=== PATIENT | female | born 1945 | race Hispanic/Latino ===

== ENCOUNTER → 2019-05-09 | Day surgery (SDC) | payer MEDICARE ==
[2019-05-06 13:59] LABS: BASOPHILS % 0.5 % (0.0-1.0); EOSINOPHILS # (AUTO) 0.3 (0.0-0.4); HEMATOCRIT 27.9 % (34.2-44.1); HEMOGLOBIN 8.8 g/dL (12.0-16.0); LYMPHOCYTES # (AUTO) 0.7 (1.0-3.2); LYMPHOCYTES % 10.7 % (18.0-39.1); MEAN CORPUSCULAR HEMOGLOBIN 29.7 pg (28-32); MEAN CORPUSCULAR HGB CONC 31.5 g/dL (31-35); MEAN CORPUSCULAR VOLUME 94.3 fL (81-99); MONOCYTES # (AUTO) 0.4 (0.2-0.8); MONOCYTES % 5.9 % (4.4-11.3); NEUTROPHILS # (AUTO) 4.9 (2.1-6.9); NEUTROPHILS % 77.6 % (38.7-80.0); PLATELET COUNT 212 x10e3/uL (140-360); RED BLOOD COUNT 2.96 x10e6/uL (3.6-5.1); RED CELL DISTRIBUTION WIDTH 15.7 % (11.7-14.4)
[~2019-05-09] MED LIST: ASPIRIN81 MG PO; ATORVASTATIN CA20 MG PO; CARVEDILOL25 MG PO; FENTANYL CITRATE/PF 100MCG/2 ML INJ ONE; GLUCAGON FOR INJ 1 MG VIAL ONE; HYOSCYAMINE 0.125 MG TAB ONE; MIDAZOLAM HCL 2 MG/2 ML VIAL ONE; PROPOFOL IV EMULSION 10 MG/ML 50 ML VIAL ONE
--- OUTSIDE RECORDS SUMMARY | 2019-05-09 06:04 | XMS REPORT | Summary of Care ---
Author Author [facility] Address Unknown Phone Unavailable Encounter VAISHNAVI Griffith(TJ) [id number] Date(s): 08/20/18 - 08/20/18 [facility] [facility] [address], [address] [place] [phone] Attending Physician: Armin Espino MD Referring Physician: Armin Espino MD Vital Signs No data available for this section Problem List Condition Effective Dates Status Health Status Informant Benign essential 11/15/12 Active hypertension1 Coronary 11/15/12 Active arteriosclerosis2 Diabetes Active mellitus(Confirmed) Diverticulitis(Confi Resolved rmed) Hyperlipidemia3 11/15/12 Active Hypertension(Confirm Active ed) Non-toxic 11/15/12 Active multinodular goiter4 Osteopenia5 11/15/12 Active Syncope(Confirmed) Resolved Type II diabetes Active mellitus uncontrolled6 1Data migrated from [employer] on 01/10/15. 2Data migrated from [employer] on 01/10/15. 3Data migrated from [employer] on 01/10/15. 4Data migrated from [employer] on 01/10/15. 5Data migrated from [employer] on 01/10/15. 6Data migrated from [employer] on 01/10/15. Allergies, Adverse Reactions, Alerts No Known Medication Allergies Medications No data available for this section Results No data available for this section Immunizations No data available for this section Procedures Procedure Date Related Diagnosis Body Site Status CABG x 3 - Coronary artery bypass grafts x 3 Completed Cataract extraction Completed Color doppler ultrasound Completed Social History Social History Type Response Substance Abuse Use: None. IV drug use: No. Employment/School Status: Retired. Alcohol Current, Type Beer. Frequency: 1-2 times per year. Alcohol use interferes with work or home: No. Smoking Status Never smoker; Exposure to Tobacco Smoke None; Cigarette Smoking Last 365 Days No; Reg Smoking Cessation Counseling No entered on: 01/09/19 Assessment and Plan No data available for this section
--- OUTSIDE RECORDS SUMMARY | 2019-05-09 06:04 | XMS REPORT | Summary of Care ---
Author Author [facility] [place] Organization [facility] [place] Address Unknown Phone Unavailable Encounter HQ Nacho(FIN) [id number] Date(s): 08/16/18 - 08/16/18 [facility] [place] [address] [place] [phone] Encounter Diagnosis Transient cerebral ischemic attack, unspecified (Final) - 08/20/18 Unspecified atherosclerosis (Final) - Discharge Disposition: Home or Self Care Attending Physician: Armin Espino MD Referring Physician: [...]
--- OUTSIDE RECORDS SUMMARY | 2019-05-09 06:04 | XMS REPORT | Summary of Care ---
Author Author [facility] Organization [facility] Address Unknown Phone Unavailable Encounter VAISHNAVI Griffith(TJ) [id number] Date(s): 01/01/19 - 01/30/19 [facility] [address] [place] [address] [phone] Discharge Disposition: Home or Self Care Attending Physician: Jan Ulloa MD Referring Physician: Jan Ulloa MD Vital Signs Most recent to 1 2 oldest [Reference Range]: Height 160.02 cm (01/01/19 8:12 AM) Temperature Oral 98.2 DegF 98.2 DegF [96.4-99.1 DegF] (01/09/19 11:35 AM) (01/01/19 11:24 AM) Blood Pressure 154/82 mmHg 153/80 mmHg [90-140/60-90 mmHg] *HI* *HI* (01/09/19 11:35 AM) (01/01/19 11:24 AM) Respiratory Rate 17 BRMIN [14-20 BRMIN] (01/01/19 11:24 AM) Peripheral Pulse 57 bpm Rate [60-100 bpm] *LOW* (01/01/19 11:24 AM) Weight 63.636 kg (01/01/19 8:12 AM) Body Mass Index 24.85 m2 (01/01/19 8:12 AM) Problem List Condition Effective Dates Status Health Status Informant Benign essential 11/15/12 Active hypertension1 Coronary 11/15/12 Active arteriosclerosis2 Diabetes Active mellitus(Confirmed) Diverticulitis(Confi Resolved rmed) Hyperlipidemia3 11/15/12 Active Hypertension(Confirm Active ed) Non-toxic 11/15/12 Active multinodular goiter4 Osteopenia5 11/15/12 Active Syncope(Confirmed) Resolved Type II diabetes Active mellitus uncontrolled6 1Data migrated from [facility] on 01/10/15. 2Data migrated from [employer] on 01/10/15. 3Data migrated from [employer] on 01/10/15. 4Data migrated from [employer] on 01/10/15. 5Data migrated from [employer] on 01/10/15. 6Data migrated from [employer] on 01/10/15. Allergies, Adverse Reactions, Alerts No Known Medication Allergies Medications aspirin 81 mg tablet, chewable 81 mg=1 tab, CHEW, Daily, 0 Refill(s) Start Date: 01/01/19 Status: Ordered atorvastatin PO, Daily, 0 Refill(s) Start Date: 01/01/19 Status: Ordered Coreg 12.5 mg, PO, BID, 0 Refill(s) Start Date: 01/01/19 Status: Ordered Feraheme + Sodium Chloride 0.9% IV 100 mL 510 mg, 17 mL, 468 ml/hr, Infuse Over: 15 minutes, Route: IVPB, 117, ONCALL, Sta rt date: 01/09/19 11:00:00 CDT, Duration: 8 hr, Stop date: 01/09/19 18:59:00 CDT Notes: Same as: FerahemeNon-FormularyDO NOT administer undiluted IVP. This agen t is reserved for use by Nephrologists in patients who are unable to tolerate or al therapy. MEDICATION WASTE Product Size: 510 mgProduct Wasted: ___ mg Start Date: 01/09/19 Stop Date: 01/09/19 Status: Completed Feraheme + Sodium Chloride 0.9% IV 100 mL 510 mg, 17 mL, 468 ml/hr, Infuse Over: 15 minutes, Route: IVPB, 117, ONCALL, Sta rt date: 01/01/19 11:00:00 CDT, Duration: 8 hr, Stop date: 01/01/19 18:59:00 CDT Notes: Same as: FerahemeNon-FormularyDO NOT administer undiluted IVP. This agen t is reserved for use by Nephrologists in patients who are unable to tolerate or al therapy. MEDICATION WASTE Product Size: 510 mgProduct Wasted: ___ mg Start Date: 01/01/19 Stop Date: 01/01/19 Status: Completed Results No data available for this section [...]
--- OUTSIDE RECORDS SUMMARY | 2019-05-09 06:04 | XMS REPORT | Continuity of Care Document ---
Author Author [facility] Organization [facility] Information [place] Address Unknown Phone Unavailable Care Team Providers Care Production Illustrator Name Role Phone [facility] Information [facility] Unavailable Unavailable Problems Problem Status Onset Date Classification Date Reported Comments Source HARIS 510MG Q0138 // CPT: 54127 // DX Active 12/19/2018 DULCE MARIA Gomez Transient cerebral ischemic attack, unspecified 08/21/2018 03/06/2019 RUI Briones G45.9 - TRANSIENT CEREBRAL ISCHEMIC AT Active 08/15/2018 [facility] Anselmo G45 - TRANSIENT CEREBRAL ISCHEMIC AT Active 08/15/2018 RUI Briones 733.90 - BONE CARTILAG Active 11/23/2012 RUI Frankel Benign essential hypertension (disorder) Active 11/15/2012 Problem 03/09/2019 Data migrated from [employer] on 01/10/15. DULCE MARIA Kimbrough [facility], [facility] [place] Coronary arteriosclerosis (disorder) Active 11/15/2012 Problem 03/09/2019 Data migrated from [employer] on 01/10/15. DULCE MARIA Kimbrough [facility], [facility] [place] Hyperlipidemia (disorder) Active 11/15/2012 Problem 03/09/2019 Data migrated from [employer] on 01/10/15. DULCE MARIA Kimbrough [facility], [facility] [place] Non-toxic multinodular goiter (disorder) Active 11/15/2012 Problem 03/09/2019 Data migrated from [employer] on 01/10/15. DULCE MARIA Kimbrough, [facility] [place] Osteopenia (disorder) Active 11/15/2012 Problem 03/09/2019 Data migrated from [employer] on 01/10/15. DULCE MARIA Kimbrough [facility], [facility] [place] Diabetes mellitus (disorder) Active Problem 03/09/2019 DULCE MARIA Kimbrough, [facility] [place] Diverticulitis (disorder) Resolved Problem 03/09/2019 DULCE MARIA Kimbrough [facility], [place] Hypertensive disorder, systemic arterial (disorder) Active [facility] [place] Syncope (disorder) Resolved Problem 03/09/2019 [facility] [place] Type II diabetes mellitus uncontrolled (finding) Active Problem 03/09/2019 Data migrated from [facility] on 01/10/15. RUI Briones,[facility], [facility] [place] Unspecified atherosclerosis 03/06/2019 [place] Briones Medications Medication Details Route Status Patient Instructions Ordering Provider Order Date Source Feraheme + Sodium Chloride 0.9% IV 100 mL 510 mg, 17 mL, 468 ml/hr, Infuse Over: 15 minutes, Route: IVPB, 117, ONCALL, Start date: 01/09/19 11:00:00 CDT, Duration: 8 hr, Stop date: 01/09/19 18:59:00 CDTNotes: Same as: Feraheme Non-Formulary DO NOT administer undiluted IVP. This agent is reserved for use by Nephrologists in patients who are unable to tolerate oral therapy. MEDICATION WASTE Product Size: 510 mg Product Wasted: ___ mg Inactive 01/09/2019 [facility] Coreg 12.5 mg, PO, BID, 0 Refill(s) Active 01/01/2019 [facility] atorvastatin PO, Daily, 0 Refill(s) Active 01/01/2019 [facility] Aspirin 81 MG Chewable Tablet 81 mg=1 tab, CHEW, Daily, 0 Refill(s) Active 01/01/2019 [facility] Feraheme + Sodium Chloride 0.9% IV 100 mL 510 mg, 17 mL, 468 ml/hr, Infuse Over: 15 minutes, Route: IVPB, 117, ONCALL, Start date: 01/01/19 11:00:00 CDT, Duration: 8 hr, Stop date: 01/01/19 18:59:00 CDTNotes: Same as: Feraheme Non-Formulary DO NOT administer undiluted IVP. This agent is reserved for use by Nephrologists in patients who are unable to tolerate oral therapy. MEDICATION WASTE Product Size: 510 mg Product Wasted: ___ mg Inactive 01/01/2019 [facility] Allergies, Adverse Reactions, Alerts Substance Category Reaction Severity Reaction type Status Date Reported Comments Source No Known Medication Allergies Assertion Drug allergy [facility] [place] Immunizations No Data Provided for This Section Results No Data Provided for This Section Pathology Reports No Data Provided for This Section Diagnostic Reports Report Value Date Source Carotid artery Doppler bilat US EXAM: Carotid Ultrasound with Doppler INDICATION: Transient ischemic attack. COMPARISON: None TECHNIQUE: Farias scale, color Doppler and spectral waveform analysis of the bilateral extracranial carotid and vertebral arteries were performed. FINDINGS: Plaque Right: Mild to moderate plaque within the common carotid artery, carotid bulb and internal carotid artery. Left: Mild to moderate plaque within the common carotid artery, carotid bulb and internal carotid artery. Intimal thickening Right: None Left: None Internal Carotid Artery Peak Systolic Velocity Right: 116 cm/sec Left: 96.7 cm/sec Common Carotid Peak Systolic Velocity Right: 71.5 cm/sec Left: 88 cm/sec Internal Carotid Artery to Common Carotid Ratio Right: 1.62 Left: 1.1 Vertebral Arteries Direction: Normal antegrade flow Waveforms: Normal Others: Incompletely evaluated thyroid gland. IMPRESSION: 1. Carotid artery plaques as described above 2. Findings consistent with less than 50% internal carotid artery stenosis bilaterally. 3. Antegrade vertebral arterial flow bilaterally. <50% stenosis: PSV <125 cm/sec, EDV <40cm/sec, ICA:CCA ratio <2 50-69% stenosis: PSV 125-230cm/sec, EDV 40-100cm/sec, ICA:CCA ratio 2-4 >70% stenosis: PSV >230cm/sec, EDV >100cm/sec, ICA:CCA ratio >4 Reference: Radiology. [phone]:[id number]. Carotid Artery Stenosis: Farias-scale and Doppler US diagnosis- Society of Radiologists in Ultrasound Consensus Conference. Alo EG, Marques CB, Ann According to the 2003 Consensus criteria: RIU, et. al. 08/16/2018 RUI Briones Consultation Notes No Data Provided for This Section Discharge Summaries No Data Provided for This Section History and Physicals No Data Provided for This Section Vital Signs Vital Sign Value Date Comments Source Temperature Oral (F) 98.2 F 01/09/2019 [facility] Systolic (mm Hg) 154 01/09/2019 [facility] Diastolic (mm Hg) 82 01/09/2019 [facility] Temperature Oral (F) 98.2 F 01/01/2019 [facility] Heart Rate 57 01/01/2019 [facility] Respitory Rate 17 01/01/2019 [facility] Systolic (mm Hg) 153 01/01/2019 [facility] Diastolic (mm Hg) 80 01/01/2019 [facility] Weight 63.636 01/01/2019 [facility] BMI Calculated 24.85 01/01/2019 [facility] Height 160.02 cm 01/01/2019 [facility] Encounters Location Location Details Encounter Type Encounter Number Reason For Visit Attending Provider ADM Date DC Date Status Source OD [id number] 733.90 - BONE CARTILAG TYRONEJohn EDWARDS 11/26/2012 Active RUI Frankel [facility] [place] [facility] [id number] Armin Espino 08/16/2018 08/17/2018 RUI Briones [facility] [place] [facility] [id number] Armin Srinivas 08/20/2018 08/20/2018 [facility] Recurring [id number] Jan Ulloa 01/01/2019 01/31/2019 [facility] Procedures Procedure Code Date Perfomer Comments Source CABG x 3 - Coronary artery bypass grafts x 3 [id number] RUI Briones,[facility] Cataract extraction [id number] [facility] Color doppler ultrasound [id number] [facility] Assessment and Plan No Data Provided for This Section Plan of Care No Data Provided for This Section Social History Social History Date Source Social History TypeResponse Substance Abuse Use: None. IV drug use: No. Employment/School Status: Retired. Alcohol Current, Type Beer. Frequency: 1-2 times per year. Alcohol use interferes with work or home: No. Smoking Status Never smoker; Exposure to Tobacco Smoke None; Cigarette Smoking Last 365 Days No; Reg Smoking Cessation Counseling No entered on: 01/09/19 01/01/2019 [facility] Social History TypeResponse Substance Abuse Use: None. IV drug use: No. Employment/School Status: Retired. Alcohol Current, Type Beer. Frequency: 1-2 times per year. Alcohol use interferes with work or home: No. Smoking Status Never smoker; Exposure to Tobacco Smoke None; Cigarette Smoking Last 365 Days No; Reg Smoking Cessation Counseling No entered on: 01/09/19 01/01/2019 RUI Briones Social History TypeResponse Substance Abuse Use: None. IV drug use: No. Employment/School Status: Retired. Alcohol Current, Type Beer. Frequency: 1-2 times per year. Alcohol use interferes with work or home: No. Smoking Status Never smoker; Exposure to Tobacco Smoke None; Cigarette Smoking Last 365 Days No; Reg Smoking Cessation Counseling No entered on: 01/09/19 01/01/2019 [facility] No Data Provided for This Section Advance Directives No Data Provided for This Section Functional Status No Data Provided for This Section
--- OUTSIDE RECORDS SUMMARY | 2019-05-09 06:04 | XMS REPORT ---
Author Author [facility] Address Unknown Phone Unavailable Care Team Providers Care Kraft Digester Operator Name Role Phone Unavailable Unavailable Payers Payer Name Policy Type Policy Number Effective Date Expiration Date Problems This patient has no known problems. Allergies, Adverse Reactions, Alerts Allergy Name Allergy Type Status Severity Reaction(s) Onset Date Inactive Date Treating Clinician Comments No Known Allergies DA Active U 2018-05-15 00:00:00 Medications This patient has no known medications. Encounters Start Date/Time End Date/Time Encounter Type Admission Type Attending Clinicians [facility] Care Department Encounter ID 2019-01-01 10:54:00 2019-01-01 10:54:00 Outpatient [id number]
--- NOTE | 2019-05-09 07:10 | NUR ---
SPIRITUAL CARE - Pre-Surgery Assessment: Pt in bed. Pt's daughter at bedside. Pt reported supportive attention from family and friends. Intervention: I provided pastoral presence, hospitality, and sympathetic listening. I acquainted pt with availability of fruit culler while hospitalized. Outcome: Pt expressed appreciation for visit. No need for follow up indicated at this time. QAMAR Houlain Spiritual Care Department O: [phone] Pager: [phone] ([phone] number calling from)
[2019-05-09 10:40] VITALS: BP 138/66
[2019-05-09 12:23] LABS: FOLATE 14.1 ng/mL (7.0-15.4)
[2019-05-09 13:15] LABS: % IRON SATURATION 15 % (15-50); IRON 42 ug/dL (50-170); TOTAL IRON BINDING CAPACITY 283 ug/dL (261-478); TRANSFERRIN 202 mg/dL (180-382)
--- NOTE | 2019-05-09 17:50 | Operative Report ---
DATE OF PROCEDURE: 05/09/2019 SURGEON: Celso Azul MD PROCEDURES: EGD with biopsies and colonoscopy with polypectomy. INDICATION FOR EGD: Anemia. INDICATION FOR COLONOSCOPY: Anemia. MEDICATIONS: The patient was done under MAC, please see anesthesiologist's note. PROCEDURE IN DETAIL: With the patient in left lateral decubitus position, a flexible fiberoptic Olympus gastroscope was introduced into the esophagus under direct visualization without any difficulty. There was some patchy erythema noted in distal esophagus. Minute tongues of velvety red mucosa were noted to extend proximally from the GE junction and biopsies were obtained to rule out Lauren. The scope was then advanced with ease into the stomach, mucosa overlying the antrum and the body revealed some patchy intense erythema and low-grade to moderate edema, and biopsies were obtained and sent to stain for H. pylori. Pylorus was of normal contour and shape, it was intubated with ease and the scope was advanced all the way to the second portion of the duodenum. The scope was then withdrawn slowly, mucosa overlying the proximal second portion and duodenal bulb grossly appeared to be within normal limits. Biopsies were obtained to rule out sprue. The scope was then withdrawn back into the stomach and retroflexed, mucosa overlying the fundus and the cardia appeared to be within normal limits. The scope was then straightened out, it was subsequently withdrawn, and the patient tolerated the procedure well. IMPRESSION: 1. Distal esophagitis, mild. 2. Rule out Lauren esophagus. 3. Gastritis, biopsied, biopsies sent to stain for Helicobacter pylori. 4. Rule out sprue. PLAN: Follow up histology. Initiate Protonix 40 mg 1 p.o. q.a.m. before meals. The patient was then turned around and after adequate lubrication of the anal canal, a flexible fiberoptic Olympus colonoscope was inserted into the rectum with ease and advanced all the way to the cecum. Prep overall was suboptimal with retained stools in the colon, but after extensive lavage, visualization was fair. Whatever was visualized the mucosa overlying the cecum appeared to be within normal limits. Of note, diverticular disease was noted to be scattered throughout the colon and was more prominent in the left colon. One polyp was removed per snare electrocautery and additional polyp was removed per cold snare polypectomy in the ascending colon. Other than for diverticular disease whatever was visualized of the transverse, descending, and sigmoid appeared to be within normal limits. The rectum appeared to be within normal limits. The scope was then retroflexed into the distal rectum and small internal hemorrhoids were noted, none of which was actively bleeding. The scope was then straightened out, it was subsequently withdrawn, and the patient tolerated the procedure well. IMPRESSION: 1. Ascending colon polyps x2, one hot snared and one removed per cold snare polypectomy. 2. Pandiverticulosis. 3. Internal hemorrhoids, none actively bleeding. PLAN: Follow up histology. Initiate high-fiber, low-fat diet. Initiate high-fiber supplement. The patient might benefit from a followup colonoscopy in 3 to 5 years. Celso Azul MD [facility] /[id number] cc: Jeyson Wisdom
== END | disposition home or self-care (01) ==
LOC: OR 05:43
PROVIDERS: ATTEND Internal Medicine Gastroenterology
DX: D64.89 Other specified anemias (principal); D12.2 Benign neoplasm of ascending colon; K29.50 Unspecified chronic gastritis without bleeding; K29.80 Duodenitis without bleeding; K22.8 Other specified diseases of esophagus; K20.9 Esophagitis, unspecified; K57.30 Diverticulosis of large intestine without perforation or abscess without bleeding; K64.8 Other hemorrhoids; B96.81 Helicobacter pylori [H. pylori] as the cause of diseases classified elsewhere; E11.9 Type 2 diabetes mellitus without complications; I25.810 Atherosclerosis of coronary artery bypass graft(s) without angina pectoris; I10 Essential (primary) hypertension; Z01.810 Encounter for preprocedural cardiovascular examination; Z01.812 Encounter for preprocedural laboratory examination; Z79.82 Long term (current) use of aspirin; Z86.73 Personal history of transient ischemic attack (TIA), and cerebral infarction without residual deficits; Z95.1 Presence of aortocoronary bypass graft
CPT/HCPCS: 36415 ×2; 43239; 45385; 82607; 82746; 82948; 83540; 84466; 85025; 85045; 88305; 88312; 93005; J1610; J2250; J2704; J3010; 45378

== ENCOUNTER → 2021-01-04 | Outpatient (CLI) | payer MEDICARE ==
[~2021-01-04] MED LIST changes: -FENTANYL CITRATE/PF 100MCG/2 ML INJ ONE; -GLUCAGON FOR INJ 1 MG VIAL ONE; -HYOSCYAMINE 0.125 MG TAB ONE; -MIDAZOLAM HCL 2 MG/2 ML VIAL ONE; -PROPOFOL IV EMULSION 10 MG/ML 50 ML VIAL ONE
== END ==
LOC: US 11:03
PROVIDERS: ATTEND Internal Medicine Nephrology
DX: N18.32 Chronic kidney disease, stage 3b (principal)
CPT/HCPCS: 76770; 76857